=== PATIENT | female | born 1945 | race Caucasian/White ===

== ENCOUNTER 2017-09-21 14:55 | Inpatient (IN) | payer MEDICARE ==
[2017-09-16] MEDS: cefTRIAXone 1g/NS 100ml IVPB 100 ML IV SCH (08:00)
[2017-09-17] MEDS: cefTRIAXone 1g/NS 100ml IVPB 100 ML IV SCH (08:00)
[2017-09-18] MEDS: cefTRIAXone 1g/NS 100ml IVPB 100 ML IV SCH (08:00)
[2017-09-19] MEDS: cefTRIAXone 1g/NS 100ml IVPB 100 ML IV SCH (08:00)
[2017-09-20] MEDS: cefTRIAXone 1g/NS 100ml IVPB 100 ML IV SCH (08:00)
[~2017-09-21] VITALS: Ht 162.6 cm; Wt 110.8 kg
[2017-09-21] MEDS: cefTRIAXone 1g/NS 100ml IVPB 100 ML IV SCH (08:00)
[~2017-09-21 14:55] MED LIST: 0.9 % SODIUM CHLORIDE 10 ML VIAL ONE; DOBUTamine/D5W 500mg/250ml premix IV ONE; DOPamine/D5W 400mg/250ml bag IV ONE; amiodarone 50MG/ML inj IV ONE; atropine 0.1mg/ml 10ml syringe ONE; calcium chloride 100 MG/1 ML inj IV ONE; epiNEPHrine 0.1mg/ml 10ml syringe ONE; etomidate 2mg/ml inj. ONE; sodium bicarbonate (8.4%) 1 mEq/ml syringe ONE
[2017-09-21] MEDS ORDERED: albuterol 2.5 MG/3 ML nebule NEB ONE ×2 (15:00→17:10)
[2017-09-21] MEDS ORDERED: etomidate 2mg/ml inj. ONE (15:00)
[2017-09-21] MEDS ORDERED: rocuronium 10mg/ml inj IV ONE (15:00)
[2017-09-21] MEDS ORDERED: amiodarone 50MG/ML inj IV ONE (15:00)
[2017-09-21] MEDS ORDERED: sodium bicarbonate (8.4%) 1 mEq/ml syringe ONE (15:00)
[2017-09-21] MEDS ORDERED: sod chloride 0.9% 10ml flush syringe IV ONE ×2 (15:00)
[2017-09-21] MEDS ORDERED: calcium chloride 100 MG/1 ML inj IV ONE (15:00)
[2017-09-21] MEDS ORDERED: NORepinephrine 1 mg/ml inj IV ONE (15:00)
[2017-09-21] MEDS ORDERED: epiNEPHrine 0.1mg/ml 10ml syringe ONE ×2 (15:00)
[2017-09-21 16:03] LABS: BASOPHILS # (AUTO) 0.1 X10'3 (0-0.2); BASOPHILS % (AUTO) 1.2 % (0-1); EOSINOPHILS # (AUTO) 0.1 X10'3 (0-0.9); EOSINOPHILS % (AUTO) 1.2 % (0-6); HEMATOCRIT 42.3 % (35.0-45.0); HEMOGLOBIN 13.6 g/dl (12.0-16.0); LYMPHOCYTES % (AUTO) 12.1 % (21-51); MEAN CORPUSCULAR HEMOGLOBIN 29.8 PG (27.0-31.0); MEAN CORPUSCULAR HGB CONC 32.3 % (33.0-36.5); MEAN CORPUSCULAR VOLUME 92.2 FL (78-98); MEAN PLATELET VOLUME 6.5 FL (7.4-10.4); MONOCYTES # (AUTO) 0.6 X10'3 (0-0.9); MONOCYTES % (AUTO) 6.4 % (2-12); NEUTROPHILS # (AUTO) 6.8 X10'3 (1.8-7.7); NEUTROPHILS % (AUTO) 79.1 % (42-75); PLATELET COUNT 332 X10'3 (140-440); RED BLOOD COUNT 4.59 X10'6 (4.20-5.60); RED CELL DISTRIBUTION WIDTH 13.7 % (11.5-14.5); WHITE BLOOD COUNT 8.6 X10'3 (4.5-11.0)
[2017-09-21 16:20] LABS: CLARITY,URINE CLEAR (Clear); COLOR,URINE YELLOW (Yellow); GLUCOSE, URINE 500 mg/dl (Neg); KETONES,URINE NEGATIVE (Neg); LEUKOCYTE ESTERASE ,URINE NEGATIVE (Neg); NITRITES, URINE POSITIVE (Neg); OCCULT BLOOD,URINE MODERATE (Neg); PH,URINE 5.5 (4.8-8.0); PROTEIN,URINE 100 mg/dl (Neg)
[2017-09-21 16:23] LABS: ALANINE AMINOTRANSFERASE 52 U/L (12-78); ALBUMIN 3.2 G/DL (3.4-5.0); ALBUMIN/GLOBULIN RATIO 0.8 (1.1-1.5); ALKALINE PHOSPHATASE 86 IU/L (46-116); ANION GAP 3 (8-16); ASPARTATE AMINO TRANSFERASE 25 U/L (10-37); BILIRUBIN,TOTAL 0.5 MG/DL (0.1-1.0); BLOOD UREA NITROGEN 17 MG/DL (7-18); BUN/CREATININE RATIO 20.2 (6.6-38.0); CALCIUM 8.9 MG/DL (8.5-10.1); CHLORIDE 95 MMOL/L (99-107); CREATININE 0.84 MG/DL (0.40-0.90); GLUCOSE 248 MG/DL (70-104); INR 1.1 INR; MAGNESIUM 1.9 MG/DL (1.5-2.4); PARTIAL THROMBOPLASTIN TIME 28 SECONDS (22-32); PHOSPHORUS 3.9 MG/DL (2.3-4.5); POTASSIUM 4.5 MMOL/L (3.5-5.1); PROTHROMBIN TIME 11.1 SECONDS (9.0-12.0); SODIUM 138 MMOL/L (135-145); TOTAL PROTEIN 7.4 G/DL (6.4-8.2); eGFR 67 ML/MIN
[2017-09-21 16:24] LABS: TOTAL CARBON DIOXIDE 40.1 MMOL/L (24-32)
[2017-09-21 16:30] LABS: UA COLLECTION TYPE NON-SPECIFIED
[2017-09-21 16:35] LABS: WBC,URINE 0-4 /HPF (0-4)
[2017-09-21 16:36] LABS: BACTERIA,URINE 4+ /HPF (Neg); RBC,URINE 0-2 /HPF (0-2); SQUAMOUS EPITHELIAL CELL,UR FEW /LPF (FEW)
[2017-09-21] MEDS ORDERED: CefTRIAXone 2gm/NS 100ml IVPB 100 ML IV ONE (16:55)
[2017-09-21] MEDS ORDERED: azithromycin/NS 500mg/250ml 250 ML IV ONE (16:55)
[2017-09-21] MEDS ORDERED: normal saline 1000ML IV soln IVB ONE (16:55)
[2017-09-21] MEDS ORDERED: methylPREDNISolone sod succ 125mg/2ml vial IV ONE (17:10)
[2017-09-21] MEDS ORDERED: magnesium hydroxide 30ml (MOM) UD suspension PO PRN (17:30)
[2017-09-21] MEDS ORDERED: ondansetron/PF 4mg/2ml inj IV PRN (17:30)
[2017-09-21] MEDS: enoxaparin 40mg/0.4ml syringe SUBCUT SCH (17:30)
[2017-09-21] MEDS ORDERED: mag hydrox/Alum hydrox/simeth 30ml oral suspension PO PRN (17:30)
[2017-09-21 17:51] LABS: ABG HCO3 38.7 mmol/L (22.0-26.0); ABG PCO2 (T) 63.4 mmHg (32.0-45.0); ABG PH (T) 7.401 (7.350-7.450); ABG PO2 (T) 43.4 mmHg (83-108); FCOHb 1.3 % (0.5-1.5); FO2Hb 81.9 % (94-100); PATIENT TEMPERATURE 36.4; TOTAL HEMOGLOBIN 13.9 G/dl (12.0-16.0)
[2017-09-21] MEDS ORDERED: SOTA80TA69 PO (19:52)
[2017-09-21] MEDS ORDERED: ALPR0.5T10 PO (19:52)
[2017-09-21] MEDS ORDERED: PRAV40TA3 PO (19:52)
[2017-09-21] MEDS ORDERED: NITR0.4T SL (19:52)
[2017-09-21] MEDS ORDERED: DABI150C PO (19:52)
[2017-09-21] MEDS ORDERED: BUSP10TA10 PO (19:52)
[2017-09-21] MEDS ORDERED: ALBU8.5H8 IH (19:52)
[2017-09-21] MEDS: dextrose 5%-1/2 normal saline 1,000 ML IV SCH (20:44)
[2017-09-22] VITALS (10 sets, daily range): BP systolic 115–137; BP diastolic 63–91
[2017-09-22] MEDS ORDERED: diltiazem 5mg/ml 5ml inj. IV ONE ×2 (00:15→03:05)
[2017-09-22] MEDS ORDERED: diltiazem-D5W 125mg/125ml 125 ML IV SCH (04:20)
[2017-09-22] MEDS: dextrose 5%-1/2 normal saline 1,000 ML IV SCH ×3 (05:16→22:06)
[2017-09-22] MEDS: enoxaparin 40mg/0.4ml syringe SUBCUT SCH (08:34)
[2017-09-22] MEDS: cefTRIAXone 1g/NS 100ml IVPB 100 ML IV SCH (08:34)
[2017-09-22] MEDS: azithromycin/NS 500mg/250ml 250 ML IV SCH (08:34)
[2017-09-22] MEDS ORDERED: LORazepam 0.5 MG tablet PO PRN (15:20)
[2017-09-22] MEDS ORDERED: sotalol 80mg tablet PO ONE (15:20)
[2017-09-22] MEDS ORDERED: nitroGLYCERIN 0.4mg SUBLingual tab SL PRN (15:30)
[2017-09-22] MEDS: lactobacillus rhamnosus 10,000 MMU CELLS/CAPSULE PO SCH (17:00)
[2017-09-22] MEDS: dabigatran 150mg capsule PO SCH (22:01)
[2017-09-22] MEDS: busPIRone 5mg tablet PO SCH (22:02)
[2017-09-22] MEDS: sotalol 80mg tablet PO SCH (22:03)
[2017-09-23] VITALS (18 sets, daily range): BP systolic 95–142; BP diastolic 49–92
[2017-09-23] MEDS: dabigatran 150mg capsule PO SCH ×3 (07:26→20:59)
[2017-09-23] MEDS: pravastatin 40mg tablet PO SCH ×2 (07:26→08:00)
[2017-09-23] MEDS: sotalol 80mg tablet PO SCH (07:26)
[2017-09-23] MEDS: cefTRIAXone 1g/NS 100ml IVPB 100 ML IV SCH (07:26)
[2017-09-23] MEDS: lactobacillus rhamnosus 10,000 MMU CELLS/CAPSULE PO SCH ×3 (07:26→17:33)
[2017-09-23] MEDS: azithromycin/NS 500mg/250ml 250 ML IV SCH (07:26)
[2017-09-23] MEDS: busPIRone 5mg tablet PO SCH ×3 (07:27→20:59)
[2017-09-23 08:34] LABS: ABG BASE EXCESS 6.8 mmol/L (-2.0-3.0); ABG HCO3 40.4 mmol/L (22.0-26.0); ABG OXYGEN SATURATION 85.5 % (95-98); ABG PCO2 (T) 124.4 mmHg (32.0-45.0); ABG PH (T) 7.129 (7.350-7.450); ABG PO2 (T) 54.7 mmHg (83-108); FCOHb 0.7 % (0.5-1.5); FLOW 1 L/min; FMetHb 0.3 % (0.3-1.12); FO2Hb 84.6 % (94-100); TOTAL HEMOGLOBIN 13.3 G/dl (12.0-16.0)
[2017-09-23 09:56] LABS: BASOPHILS # (AUTO) 0.1 X10'3 (0-0.2); BASOPHILS % (AUTO) 1.2 % (0-1); EOSINOPHILS # (AUTO) 0.1 X10'3 (0-0.9); EOSINOPHILS % (AUTO) 0.7 % (0-6); HEMATOCRIT 38.7 % (35.0-45.0); HEMOGLOBIN 12.4 g/dl (12.0-16.0); LYMPHOCYTES # (AUTO) 2.2 X10'3 (1.1-4.8); LYMPHOCYTES % (AUTO) 21.8 % (21-51); MEAN CORPUSCULAR HEMOGLOBIN 30.2 PG (27.0-31.0); MEAN CORPUSCULAR HGB CONC 32.1 % (33.0-36.5); MEAN CORPUSCULAR VOLUME 94.2 FL (78-98); MEAN PLATELET VOLUME 6.5 FL (7.4-10.4); MONOCYTES # (AUTO) 1.3 X10'3 (0-0.9); MONOCYTES % (AUTO) 13.2 % (2-12); NEUTROPHILS # (AUTO) 6.4 X10'3 (1.8-7.7); NEUTROPHILS % (AUTO) 63.1 % (42-75); PLATELET COUNT 327 X10'3 (140-440); RED BLOOD COUNT 4.11 X10'6 (4.20-5.60); RED CELL DISTRIBUTION WIDTH 14.7 % (11.5-14.5); WHITE BLOOD COUNT 10.1 X10'3 (4.5-11.0)
[2017-09-23 10:05] LABS: ABG BASE EXCESS 13.4 mmol/L (-2.0-3.0); ABG HCO3 48.4 mmol/L (22.0-26.0); ABG OXYGEN SATURATION 45.3 % (95-98); ABG PH (T) 7.127 (7.350-7.450); ABG PO2 (T) 28.9 mmHg (83-108); FCOHb 0.6 % (0.5-1.5); FMetHb 0.2 % (0.3-1.12); FO2Hb 44.9 % (94-100); MINUTE VOLUME 9 L/min; RESPIRATORY RATE 22 b/min; RESPIRATORY RATE (OBSERVED) 24 b/min; TOTAL HEMOGLOBIN 13.1 G/dl (12.0-16.0)
[2017-09-23 10:11] LABS: ALANINE AMINOTRANSFERASE 37 U/L (12-78); ALBUMIN 2.8 G/DL (3.4-5.0); ALBUMIN/GLOBULIN RATIO 0.8 (1.1-1.5); ALKALINE PHOSPHATASE 70 IU/L (46-116); ANION GAP -3 (8-16); ASPARTATE AMINO TRANSFERASE 17 U/L (10-37); BILIRUBIN,TOTAL 0.2 MG/DL (0.1-1.0); BLOOD UREA NITROGEN 13 MG/DL (7-18); BUN/CREATININE RATIO 16.5 (6.6-38.0); CALCIUM 8.4 MG/DL (8.5-10.1); CHLORIDE 101 MMOL/L (99-107); CREATININE 0.79 MG/DL (0.40-0.90); GLUCOSE 116 MG/DL (70-104); SODIUM 141 MMOL/L (135-145); TOTAL PROTEIN 6.5 G/DL (6.4-8.2); eGFR 72 ML/MIN
[2017-09-23 10:14] LABS: TOTAL CARBON DIOXIDE 42.7 MMOL/L (24-32)
[2017-09-23] MEDS: methylPREDNISolone sod succ 125mg/2ml vial IV SCH ×3 (11:01→20:59)
[2017-09-23] MEDS: normal saline 1000ml 1,000 ML IV SCH ×2 (14:11→16:38)
[2017-09-23 15:50] LABS: ABG BASE EXCESS 7.3 mmol/L (-2.0-3.0); ABG OXYGEN SATURATION 94.7 % (95-98); ABG PCO2 (T) 80.3 mmHg (32.0-45.0); ABG PH (T) 7.281 (7.350-7.450); ABG PO2 (T) 76.3 mmHg (83-108); ALLEN'S TEST Positive; FCOHb 0.7 % (0.5-1.5); FMetHb 0.2 % (0.3-1.12); FO2Hb 93.8 % (94-100); MINUTE VOLUME 14 L/min; RESPIRATORY RATE 24 b/min; TOTAL HEMOGLOBIN 13.3 G/dl (12.0-16.0)
[2017-09-24] VITALS (24 sets, daily range): BP systolic 102–154; BP diastolic 64–93
[2017-09-24] MEDS: methylPREDNISolone sod succ 125mg/2ml vial IV SCH ×4 (02:23→19:51)
[2017-09-24] MEDS: normal saline 1000ml 1,000 ML IV SCH (05:41)
[2017-09-24 06:20] LABS: BASOPHILS % (AUTO) 0.2 % (0-1); EOSINOPHILS % (AUTO) 0.4 % (0-6); HEMATOCRIT 37.2 % (35.0-45.0); HEMOGLOBIN 12.2 g/dl (12.0-16.0); LYMPHOCYTES # (AUTO) 0.6 X10'3 (1.1-4.8); MEAN CORPUSCULAR HEMOGLOBIN 29.7 PG (27.0-31.0); MEAN CORPUSCULAR HGB CONC 32.9 % (33.0-36.5); MEAN CORPUSCULAR VOLUME 90.4 FL (78-98); MEAN PLATELET VOLUME 6.8 FL (7.4-10.4); MONOCYTES # (AUTO) 0.2 X10'3 (0-0.9); MONOCYTES % (AUTO) 2.7 % (2-12); NEUTROPHILS # (AUTO) 6.2 X10'3 (1.8-7.7); NEUTROPHILS % (AUTO) 87.7 % (42-75); PLATELET COUNT 275 X10'3 (140-440); RED BLOOD COUNT 4.11 X10'6 (4.20-5.60); WHITE BLOOD COUNT 7.1 X10'3 (4.5-11.0)
[2017-09-24 07:12] LABS: ALANINE AMINOTRANSFERASE 43 U/L (12-78); ALBUMIN 2.8 G/DL (3.4-5.0); ALBUMIN/GLOBULIN RATIO 0.8 (1.1-1.5); ALKALINE PHOSPHATASE 65 IU/L (46-116); ANION GAP 5 (8-16); ASPARTATE AMINO TRANSFERASE 17 U/L (10-37); BILIRUBIN,TOTAL 0.3 MG/DL (0.1-1.0); BLOOD UREA NITROGEN 13 MG/DL (7-18); BUN/CREATININE RATIO 18.6 (6.6-38.0); CALCIUM 8.6 MG/DL (8.5-10.1); CHLORIDE 100 MMOL/L (99-107); GLUCOSE 195 MG/DL (70-104); POTASSIUM 4.4 MMOL/L (3.5-5.1); SODIUM 140 MMOL/L (135-145); TOTAL CARBON DIOXIDE 35.5 MMOL/L (24-32); TOTAL PROTEIN 6.5 G/DL (6.4-8.2); eGFR 82 ML/MIN
[2017-09-24] MEDS: dabigatran 150mg capsule PO SCH ×2 (07:54→19:51)
[2017-09-24] MEDS: lactobacillus rhamnosus 10,000 MMU CELLS/CAPSULE PO SCH ×2 (07:54→19:51)
[2017-09-24] MEDS: pravastatin 40mg tablet PO SCH (07:54)
[2017-09-24] MEDS: azithromycin 250mg tablet PO SCH (07:55)
[2017-09-24] MEDS: cefTRIAXone 1g/NS 100ml IVPB 100 ML IV SCH (07:55)
[2017-09-24] MEDS: busPIRone 5mg tablet PO SCH ×2 (07:55→19:51)
[2017-09-24] MEDS: albuterol 2.5 MG/3 ML nebule NEB PRN ×3 (07:57→23:53)
[2017-09-24] MEDS ORDERED: ipratropium 0.5 MG/2.5ML nebule IH SCH (12:00)
[2017-09-24] MEDS: ipratropium/albuterol 3ml nebule NEB SCH ×2 (14:18→19:23)
[2017-09-24] MEDS ORDERED: LORazepam 0.5 MG tablet PO ONE (20:50)
[2017-09-24] MEDS ORDERED: LORazepam 2 mg/ml vial IV ONE ×2 (21:00→23:35)
[2017-09-24] MEDS ORDERED: diphenhydrAMINE 50 mg/ml inj IV ONE (21:00)
[2017-09-24] MEDS ORDERED: diphenhydrAMINE 50 mg/ml inj ONE (21:09)
[2017-09-24] MEDS ORDERED: LORazepam 2 mg/ml vial ONE ×2 (21:09→23:34)
[2017-09-24] MEDS: nicotine 14mg patch - 24hr TD SCH (23:35)
[2017-09-25] VITALS (24 sets, daily range): BP systolic 93–149; BP diastolic 63–119
[2017-09-25] MEDS ORDERED: ziprasidone IM 20mg inj **IM only IM ONE
[2017-09-25 01:16] LABS: ABG BASE EXCESS 10.6 mmol/L (-2.0-3.0); ABG HCO3 38.4 mmol/L (22.0-26.0); ABG PCO2 (T) 68.3 mmHg (32.0-45.0); ABG PH (T) 7.369 (7.350-7.450); ABG PO2 (T) 111.8 mmHg (83-108); FCOHb 0.2 % (0.5-1.5); FMetHb 0.2 % (0.3-1.12); FO2Hb 97.6 % (94-100); MINUTE VOLUME 24 L/min; PATIENT TEMPERATURE 37.4; RESPIRATORY RATE 18 b/min; RESPIRATORY RATE (OBSERVED) 30 b/min; TIDAL VOLUME 922 mL; TOTAL HEMOGLOBIN 12.7 G/dl (12.0-16.0)
[2017-09-25] MEDS: methylPREDNISolone sod succ 125mg/2ml vial IV SCH ×4 (02:15→21:01)
[2017-09-25] MEDS ORDERED: amiodarone/D5 360MG/200ML BAG 200 ML IV SCH (03:26)
[2017-09-25] MEDS ORDERED: amiodarone 150mg/dext, iso-os 100 ML IV ONE (03:30)
[2017-09-25] MEDS: amiodarone/D5 450MG/250ML BAG 250 ML IV SCH (04:22)
[2017-09-25] MEDS: ipratropium/albuterol 3ml nebule NEB SCH ×4 (07:22→19:11)
[2017-09-25] MEDS: nicotine 14mg patch - 24hr TD SCH (08:00)
[2017-09-25] MEDS: cefTRIAXone 1g/NS 100ml IVPB 100 ML IV SCH (08:30)
[2017-09-25] MEDS: azithromycin 250mg tablet PO SCH (13:34)
[2017-09-25] MEDS: busPIRone 5mg tablet PO SCH ×2 (13:35→21:01)
[2017-09-25] MEDS: pravastatin 40mg tablet PO SCH (13:35)
[2017-09-25] MEDS: lactobacillus rhamnosus 10,000 MMU CELLS/CAPSULE PO SCH ×2 (13:35→21:01)
[2017-09-25] MEDS: dabigatran 150mg capsule PO SCH ×2 (13:35→21:02)
[2017-09-25] MEDS ORDERED: enoxaparin 60mg/0.6ml syringe SUBCUT SCH (20:00)
[2017-09-25] MEDS: acetaminophen 325mg tablet PO PRN (21:03)
[2017-09-25] MEDS: ALPRAZolam 0.25mg tablet PO SCH (21:22)
[2017-09-26] VITALS (24 sets, daily range): BP systolic 100–152; BP diastolic 59–101
[2017-09-26] MEDS: ALPRAZolam 0.25mg tablet PO SCH
[2017-09-26] MEDS ORDERED: ALPRAZolam 0.25mg tablet PO ONE (02:35)
[2017-09-26] MEDS: methylPREDNISolone sod succ 125mg/2ml vial IV SCH ×4 (02:41→20:39)
[2017-09-26] MEDS: amiodarone/D5 450MG/250ML BAG 250 ML IV SCH ×2 (04:41→17:38)
[2017-09-26 06:17] LABS: BASOPHILS % (AUTO) 0.1 % (0-1); EOSINOPHILS # (AUTO) 0.1 X10'3 (0-0.9); EOSINOPHILS % (AUTO) 0.6 % (0-6); HEMATOCRIT 37.9 % (35.0-45.0); HEMOGLOBIN 12.2 g/dl (12.0-16.0); LYMPHOCYTES # (AUTO) 0.4 X10'3 (1.1-4.8); LYMPHOCYTES % (AUTO) 4.4 % (21-51); MEAN CORPUSCULAR HEMOGLOBIN 29.6 PG (27.0-31.0); MEAN CORPUSCULAR HGB CONC 32.2 % (33.0-36.5); MEAN CORPUSCULAR VOLUME 91.8 FL (78-98); MEAN PLATELET VOLUME 6.7 FL (7.4-10.4); MONOCYTES # (AUTO) 0.5 X10'3 (0-0.9); MONOCYTES % (AUTO) 4.5 % (2-12); NEUTROPHILS # (AUTO) 9.3 X10'3 (1.8-7.7); NEUTROPHILS % (AUTO) 90.4 % (42-75); PLATELET COUNT 276 X10'3 (140-440); RED BLOOD COUNT 4.13 X10'6 (4.20-5.60); RED CELL DISTRIBUTION WIDTH 14.2 % (11.5-14.5); WHITE BLOOD COUNT 10.3 X10'3 (4.5-11.0)
[2017-09-26 06:57] LABS: ALANINE AMINOTRANSFERASE 38 U/L (12-78); ALBUMIN 2.7 G/DL (3.4-5.0); ALBUMIN/GLOBULIN RATIO 0.7 (1.1-1.5); ALKALINE PHOSPHATASE 64 IU/L (46-116); ANION GAP 2 (8-16); ASPARTATE AMINO TRANSFERASE 12 U/L (10-37); BILIRUBIN,TOTAL 0.3 MG/DL (0.1-1.0); BLOOD UREA NITROGEN 21 MG/DL (7-18); BUN/CREATININE RATIO 28.8 (6.6-38.0); CALCIUM 8.4 MG/DL (8.5-10.1); CHLORIDE 102 MMOL/L (99-107); CREATININE 0.73 MG/DL (0.40-0.90); GLUCOSE 193 MG/DL (70-104); POTASSIUM 4.7 MMOL/L (3.5-5.1); SODIUM 141 MMOL/L (135-145); TOTAL CARBON DIOXIDE 36.6 MMOL/L (24-32); TOTAL PROTEIN 6.5 G/DL (6.4-8.2); eGFR 79 ML/MIN
[2017-09-26] MEDS: ipratropium/albuterol 3ml nebule NEB SCH ×4 (07:04→19:21)
[2017-09-26] MEDS: cefTRIAXone 1g/NS 100ml IVPB 100 ML IV SCH (08:16)
[2017-09-26] MEDS: busPIRone 5mg tablet PO SCH ×2 (08:19→20:40)
[2017-09-26] MEDS: dabigatran 150mg capsule PO SCH ×2 (08:19→20:39)
[2017-09-26] MEDS: pravastatin 40mg tablet PO SCH (08:19)
[2017-09-26] MEDS: lactobacillus rhamnosus 10,000 MMU CELLS/CAPSULE PO SCH ×2 (08:19→20:39)
[2017-09-26] MEDS: azithromycin 250mg tablet PO SCH (08:19)
[2017-09-26] MEDS: nicotine 14mg patch - 24hr TD SCH (08:20)
[2017-09-26] MEDS: acetaminophen 325mg tablet PO PRN ×2 (11:56→17:37)
[2017-09-26] MEDS: digoxin 250mcg (0.25mg) tablet PO SCH (13:05)
[2017-09-26] MEDS ORDERED: ALPRAZolam 0.25mg tablet PO PRN (20:10)
[2017-09-27] VITALS (16 sets, daily range): BP systolic 27–156; BP diastolic 74–97
[2017-09-27] MEDS: methylPREDNISolone sod succ 125mg/2ml vial IV SCH ×2 (02:23→07:20)
[2017-09-27 06:09] LABS: BASOPHILS % (AUTO) 0 % (0-1); EOSINOPHILS # (AUTO) 0.2 X10'3 (0-0.9); EOSINOPHILS % (AUTO) 1.8 % (0-6); HEMATOCRIT 37.4 % (35.0-45.0); LYMPHOCYTES # (AUTO) 0.3 X10'3 (1.1-4.8); MEAN CORPUSCULAR HEMOGLOBIN 29.4 PG (27.0-31.0); MEAN CORPUSCULAR HGB CONC 32.1 % (33.0-36.5); MEAN CORPUSCULAR VOLUME 91.8 FL (78-98); MEAN PLATELET VOLUME 6.8 FL (7.4-10.4); MONOCYTES # (AUTO) 0.5 X10'3 (0-0.9); MONOCYTES % (AUTO) 4.8 % (2-12); NEUTROPHILS # (AUTO) 9.4 X10'3 (1.8-7.7); NEUTROPHILS % (AUTO) 90.4 % (42-75); PLATELET COUNT 252 X10'3 (140-440); RED BLOOD COUNT 4.07 X10'6 (4.20-5.60); RED CELL DISTRIBUTION WIDTH 14.6 % (11.5-14.5); WHITE BLOOD COUNT 10.4 X10'3 (4.5-11.0)
[2017-09-27 06:27] LABS: ALANINE AMINOTRANSFERASE 37 U/L (12-78); ALBUMIN 2.7 G/DL (3.4-5.0); ALBUMIN/GLOBULIN RATIO 0.8 (1.1-1.5); ALKALINE PHOSPHATASE 65 IU/L (46-116); ANION GAP 2 (8-16); ASPARTATE AMINO TRANSFERASE 8 U/L (10-37); BILIRUBIN,TOTAL 0.3 MG/DL (0.1-1.0); BLOOD UREA NITROGEN 20 MG/DL (7-18); BUN/CREATININE RATIO 30.8 (6.6-38.0); CALCIUM 8.4 MG/DL (8.5-10.1); CHLORIDE 100 MMOL/L (99-107); CREATININE 0.65 MG/DL (0.40-0.90); GLUCOSE 198 MG/DL (70-104); MAGNESIUM 2.2 MG/DL (1.5-2.4); POTASSIUM 4.9 MMOL/L (3.5-5.1); SODIUM 140 MMOL/L (135-145); TOTAL CARBON DIOXIDE 38.2 MMOL/L (24-32); TOTAL PROTEIN 6.2 G/DL (6.4-8.2); eGFR 90 ML/MIN
[2017-09-27] MEDS: dabigatran 150mg capsule PO SCH ×2 (07:20→21:42)
[2017-09-27] MEDS: cefTRIAXone 1g/NS 100ml IVPB 100 ML IV SCH (07:20)
[2017-09-27] MEDS: busPIRone 5mg tablet PO SCH ×2 (07:20→19:34)
[2017-09-27] MEDS: digoxin 250mcg (0.25mg) tablet PO SCH (07:20)
[2017-09-27] MEDS: lactobacillus rhamnosus 10,000 MMU CELLS/CAPSULE PO SCH ×2 (07:20→19:33)
[2017-09-27] MEDS: nicotine 14mg patch - 24hr TD SCH (07:21)
[2017-09-27] MEDS: pravastatin 40mg tablet PO SCH (07:21)
[2017-09-27] MEDS: azithromycin 250mg tablet PO SCH (07:21)
[2017-09-27] MEDS: ipratropium/albuterol 3ml nebule NEB SCH ×4 (08:25→16:15)
[2017-09-27] MEDS: sotalol 80mg tablet PO SCH ×2 (09:49→19:33)
[2017-09-27] MEDS: cefTAZidime inj. 1 GM in normal saline 100ml IV soln 100 ML IV SCH ×3 (11:50→23:47)
[2017-09-27] MEDS: methylPREDNISolone sod succ/PF 40mg inj. IV SCH ×2 (19:02→23:47)
[2017-09-27] MEDS: acetaminophen 325mg tablet PO PRN (19:45)
[2017-09-27] MEDS: albuterol 2.5 MG/3 ML nebule NEB PRN (20:36)
[2017-09-28] VITALS (23 sets, daily range): BP systolic 81–189; BP diastolic 54–108
[2017-09-28] MEDS: ipratropium/albuterol 3ml nebule NEB SCH ×3 (07:00→20:21)
[2017-09-28] MEDS: dabigatran 150mg capsule PO SCH (08:00)
[2017-09-28] MEDS: digoxin 250mcg (0.25mg) tablet PO SCH (08:00)
[2017-09-28] MEDS: pravastatin 40mg tablet PO SCH (08:00)
[2017-09-28] MEDS: methylPREDNISolone sod succ/PF 40mg inj. IV SCH ×2 (08:03→16:00)
[2017-09-28] MEDS: sotalol 80mg tablet PO SCH ×2 (08:03→20:00)
[2017-09-28] MEDS: nicotine 14mg patch - 24hr TD SCH (08:03)
[2017-09-28] MEDS: busPIRone 5mg tablet PO SCH ×2 (08:06→22:44)
[2017-09-28] MEDS: lactobacillus rhamnosus 10,000 MMU CELLS/CAPSULE PO SCH ×2 (08:06→22:44)
[2017-09-28] MEDS: azithromycin 250mg tablet PO SCH (08:07)
[2017-09-28] MEDS ORDERED: hydrALAZINE 20mg/ml inj. IV STA (08:54)
[2017-09-28] MEDS ORDERED: cloNIDine 0.2 MG/24 HR patch (7 day patch) TD STA (08:54)
[2017-09-28 09:01] LABS: ABG BASE EXCESS 3.8 mmol/L (-2.0-3.0); ABG HCO3 38.5 mmol/L (22.0-26.0); ABG PCO2 (T) 122.4 mmHg (32.0-45.0); ALLEN'S TEST Positive; FCOHb 0.6 % (0.5-1.5); FMetHb 0.3 % (0.3-1.12); FO2Hb 98.1 % (94-100); TOTAL HEMOGLOBIN 15.2 G/dl (12.0-16.0)
[2017-09-28 12:01] LABS: ABG BASE EXCESS 5.4 mmol/L (-2.0-3.0); ABG HCO3 35.3 mmol/L (22.0-26.0); ABG OXYGEN SATURATION 94.9 % (95-98); ABG PCO2 (T) 81.5 mmHg (32.0-45.0); ABG PH (T) 7.256 (7.350-7.450); ABG PO2 (T) 81.6 mmHg (83-108); ALLEN'S TEST Positive; FCOHb 0.6 % (0.5-1.5); FMetHb 0.2 % (0.3-1.12); FO2Hb 94.1 % (94-100); PATIENT TEMPERATURE 37.1; RESPIRATORY RATE 20 b/min; TOTAL HEMOGLOBIN 13.7 G/dl (12.0-16.0)
[2017-09-28] MEDS: cefTAZidime inj. 1 GM in normal saline 100ml IV soln 100 ML IV SCH ×2 (12:32→17:20)
[2017-09-28] MEDS ORDERED: succinylcholine 20mg/ml inj IV ONE ×2 (16:37→16:46)
[2017-09-28 17:40] LABS: ABG BASE EXCESS 3.8 mmol/L (-2.0-3.0); ABG HCO3 30.4 mmol/L (22.0-26.0); ABG OXYGEN SATURATION 97.1 % (95-98); ABG PCO2 (T) 52.8 mmHg (32.0-45.0); ABG PH (T) 7.376 (7.350-7.450); ABG PO2 (T) 87.7 mmHg (83-108); ALLEN'S TEST Positive; FCOHb 0.5 % (0.5-1.5); FMetHb 0.2 % (0.3-1.12); FO2Hb 96.4 % (94-100); MINUTE VOLUME 7 L/min; PATIENT TEMPERATURE 36.5; PEEP 5 cm H2O; RESPIRATORY RATE 18 b/min; TIDAL VOLUME 350 mL; TOTAL HEMOGLOBIN 14.4 G/dl (12.0-16.0)
[2017-09-28] MEDS ORDERED: midazolam 100mg in NS 100ml 100 ML IV PRN (18:00)
[2017-09-28] MEDS ORDERED: FENTANYL-0.9 % NACL/PF 100 ML IV PRN (18:00)
[2017-09-28] MEDS: midazolam 100mg in NS 100ml 100 ML IV PRN (18:03)
[2017-09-28] MEDS: FENTANYL-0.9 % NACL/PF 100 ML IV PRN (18:03)
[2017-09-28 18:22] LABS: BASOPHILS % (AUTO) 0.1 % (0-1); EOSINOPHILS % (AUTO) 0.1 % (0-6); HEMATOCRIT 42.3 % (35.0-45.0); HEMOGLOBIN 13.3 g/dl (12.0-16.0); LYMPHOCYTES # (AUTO) 0.4 X10'3 (1.1-4.8); MEAN CORPUSCULAR HEMOGLOBIN 28.9 PG (27.0-31.0); MEAN CORPUSCULAR HGB CONC 31.5 % (33.0-36.5); MEAN CORPUSCULAR VOLUME 91.6 FL (78-98); MEAN PLATELET VOLUME 6.8 FL (7.4-10.4); MONOCYTES % (AUTO) 4.8 % (2-12); NEUTROPHILS # (AUTO) 18.7 X10'3 (1.8-7.7); PLATELET COUNT 227 X10'3 (140-440); RED BLOOD COUNT 4.61 X10'6 (4.20-5.60); RED CELL DISTRIBUTION WIDTH 14.1 % (11.5-14.5); WHITE BLOOD COUNT 20.1 X10'3 (4.5-11.0)
[2017-09-28 18:47] LABS: ALANINE AMINOTRANSFERASE 42 U/L (12-78); ALBUMIN 2.4 G/DL (3.4-5.0); ALBUMIN/GLOBULIN RATIO 0.7 (1.1-1.5); ALKALINE PHOSPHATASE 64 IU/L (46-116); ANION GAP 2 (8-16); ASPARTATE AMINO TRANSFERASE 20 U/L (10-37); BILIRUBIN,TOTAL 0.4 MG/DL (0.1-1.0); BLOOD UREA NITROGEN 27 MG/DL (7-18); CALCIUM 8.1 MG/DL (8.5-10.1); CHLORIDE 100 MMOL/L (99-107); CREATININE 0.87 MG/DL (0.40-0.90); GLUCOSE 196 MG/DL (70-104); MAGNESIUM 2.1 MG/DL (1.5-2.4); PHOSPHORUS 4.3 MG/DL (2.3-4.5); SODIUM 140 MMOL/L (135-145); TOTAL CARBON DIOXIDE 38.1 MMOL/L (24-32); TOTAL PROTEIN 5.7 G/DL (6.4-8.2); eGFR 64 ML/MIN
[2017-09-28] MEDS ORDERED: heparin 10,000 units/1 ML INJ IV PRN (19:35)
[2017-09-28] MEDS ORDERED: heparin 10,000 units/1 ML INJ IV ONE (19:35)
[2017-09-28 22:32] LABS: CLARITY,URINE SLIGHTLY CLOUDY (Clear); COLOR,URINE YELLOW (Yellow); GLUCOSE, URINE NEGATIVE (Neg); KETONES,URINE NEGATIVE (Neg); LEUKOCYTE ESTERASE ,URINE NEGATIVE (Neg); NITRITES, URINE NEGATIVE (Neg); OCCULT BLOOD,URINE LARGE (Neg); PROTEIN,URINE 30 mg/dl (Neg); UROBILINOGEN,URINE 0.2 E.U/dL (0.2-1.0)
[2017-09-28 22:50] LABS: UA COLLECTION TYPE FOLEY CATH
[2017-09-28 22:51] LABS: BACTERIA,URINE FEW /HPF (Neg); MUCUS STRANDS FEW /LPF (Neg); RBC,URINE TNTC /HPF (0-2); SQUAMOUS EPITHELIAL CELL,UR MODERATE /LPF (FEW); WBC,URINE 0-4 /HPF (0-4)
[2017-09-29] VITALS (25 sets, daily range): BP systolic 82–133; BP diastolic 57–94
[2017-09-29] MEDS: cefTAZidime inj. 1 GM in normal saline 100ml IV soln 100 ML IV SCH ×2
[2017-09-29 01:28] LABS: BASOPHILS % (AUTO) 0.2 % (0-1); EOSINOPHILS % (AUTO) 0 % (0-6); HEMATOCRIT 36.9 % (35.0-45.0); HEMOGLOBIN 12.3 g/dl (12.0-16.0); LYMPHOCYTES # (AUTO) 0.6 X10'3 (1.1-4.8); LYMPHOCYTES % (AUTO) 5.4 % (21-51); MEAN CORPUSCULAR HEMOGLOBIN 30.4 PG (27.0-31.0); MEAN CORPUSCULAR HGB CONC 33.2 % (33.0-36.5); MEAN CORPUSCULAR VOLUME 91.4 FL (78-98); MEAN PLATELET VOLUME 7.4 FL (7.4-10.4); MONOCYTES # (AUTO) 0.7 X10'3 (0-0.9); NEUTROPHILS # (AUTO) 9.9 X10'3 (1.8-7.7); NEUTROPHILS % (AUTO) 88.4 % (42-75); PLATELET COUNT 173 X10'3 (140-440); RED BLOOD COUNT 4.04 X10'6 (4.20-5.60); RED CELL DISTRIBUTION WIDTH 13.8 % (11.5-14.5); WHITE BLOOD COUNT 11.2 X10'3 (4.5-11.0)
[2017-09-29 01:42] LABS: ALANINE AMINOTRANSFERASE 35 U/L (12-78); ALBUMIN 2.1 G/DL (3.4-5.0); ALBUMIN/GLOBULIN RATIO 0.7 (1.1-1.5); ALKALINE PHOSPHATASE 48 IU/L (46-116); ANION GAP 5 (8-16); ASPARTATE AMINO TRANSFERASE 15 U/L (10-37); BILIRUBIN,TOTAL 0.4 MG/DL (0.1-1.0); BLOOD UREA NITROGEN 28 MG/DL (7-18); BUN/CREATININE RATIO 32.9 (6.6-38.0); CALCIUM 8.1 MG/DL (8.5-10.1); CHLORIDE 102 MMOL/L (99-107); CREATININE 0.85 MG/DL (0.40-0.90); GLUCOSE 211 MG/DL (70-104); POTASSIUM 4.8 MMOL/L (3.5-5.1); SODIUM 142 MMOL/L (135-145); TROPONIN I 0.06 NG/ML (0.0-0.05); eGFR 66 ML/MIN
[2017-09-29] MEDS ORDERED: ceftazidime 1000mg in D5W 50ml 50 ML IV ONE (01:52)
[2017-09-29] MEDS: methylPREDNISolone sod succ/PF 40mg inj. IV SCH ×3 (01:54→16:09)
[2017-09-29] MEDS: NORepinephrine 8mg/ 250ml NS 250 ML IV SCH (02:40)
[2017-09-29 03:13] LABS: BASOPHILS % (AUTO) 0.2 % (0-1); EOSINOPHILS # (AUTO) 0.1 X10'3 (0-0.9); EOSINOPHILS % (AUTO) 0.9 % (0-6); HEMATOCRIT 44.6 % (35.0-45.0); HEMOGLOBIN 14.2 g/dl (12.0-16.0); LYMPHOCYTES # (AUTO) 2.5 X10'3 (1.1-4.8); LYMPHOCYTES % (AUTO) 30.8 % (21-51); MEAN CORPUSCULAR HGB CONC 31.9 % (33.0-36.5); MEAN CORPUSCULAR VOLUME 91.1 FL (78-98); MEAN PLATELET VOLUME 7.4 FL (7.4-10.4); MONOCYTES # (AUTO) 0.1 X10'3 (0-0.9); MONOCYTES % (AUTO) 1.6 % (2-12); NEUTROPHILS # (AUTO) 5.4 X10'3 (1.8-7.7); NEUTROPHILS % (AUTO) 66.5 % (42-75); PLATELET COUNT 117 X10'3 (140-440); RED CELL DISTRIBUTION WIDTH 14.5 % (11.5-14.5); WHITE BLOOD COUNT 8.1 X10'3 (4.5-11.0)
[2017-09-29 03:47] LABS: ALANINE AMINOTRANSFERASE 42 U/L (12-78); ALBUMIN 2.5 G/DL (3.4-5.0); ALBUMIN/GLOBULIN RATIO 0.7 (1.1-1.5); ALKALINE PHOSPHATASE 70 IU/L (46-116); ANION GAP 6 (8-16); ASPARTATE AMINO TRANSFERASE 25 U/L (10-37); BILIRUBIN,TOTAL 0.5 MG/DL (0.1-1.0); BLOOD UREA NITROGEN 29 MG/DL (7-18); BUN/CREATININE RATIO 29.6 (6.6-38.0); CALCIUM 8.9 MG/DL (8.5-10.1); CHLORIDE 101 MMOL/L (99-107); CREATININE 0.98 MG/DL (0.40-0.90); GLUCOSE 238 MG/DL (70-104); MAGNESIUM 2.1 MG/DL (1.5-2.4); POTASSIUM 5.4 MMOL/L (3.5-5.1); SODIUM 139 MMOL/L (135-145); TOTAL CARBON DIOXIDE 31.7 MMOL/L (24-32); TOTAL PROTEIN 6.1 G/DL (6.4-8.2); eGFR 56 ML/MIN
[2017-09-29 03:52] LABS: TROPONIN I 1.12 NG/ML (0.0-0.05)
[2017-09-29 04:21] LABS: ABG BASE EXCESS 3.4 mmol/L (-2.0-3.0); ABG HCO3 30.4 mmol/L (22.0-26.0); ABG OXYGEN SATURATION 99.7 % (95-98); ABG PCO2 (T) 57.2 mmHg (32.0-45.0); ABG PH (T) 7.345 (7.350-7.450); FCOHb 0.6 % (0.5-1.5); FMetHb 0.1 % (0.3-1.12); MINUTE VOLUME 7 L/min; PATIENT TEMPERATURE 37.3; PEEP 5 cm H2O; RESPIRATORY RATE 18 b/min; TIDAL VOLUME 350 mL; TOTAL HEMOGLOBIN 14.1 G/dl (12.0-16.0)
[2017-09-29] MEDS: midazolam 100mg in NS 100ml 100 ML IV PRN (06:46)
[2017-09-29] MEDS: FENTANYL-0.9 % NACL/PF 100 ML IV PRN (06:47)
[2017-09-29] MEDS: sotalol 80mg tablet PO SCH ×2 (07:12→20:00)
[2017-09-29] MEDS: azithromycin 250mg tablet PO SCH (07:24)
[2017-09-29] MEDS: lactobacillus rhamnosus 10,000 MMU CELLS/CAPSULE PO SCH ×2 (07:24→22:20)
[2017-09-29] MEDS: digoxin 250mcg (0.25mg) tablet PO SCH (07:25)
[2017-09-29] MEDS: nicotine 14mg patch - 24hr TD SCH (07:25)
[2017-09-29] MEDS: busPIRone 5mg tablet PO SCH ×2 (07:25→22:20)
[2017-09-29 07:26] LABS: BASOPHILS % (AUTO) 0.1 % (0-1); EOSINOPHILS # (AUTO) 0.2 X10'3 (0-0.9); EOSINOPHILS % (AUTO) 0.9 % (0-6); HEMATOCRIT 40.6 % (35.0-45.0); HEMOGLOBIN 13.1 g/dl (12.0-16.0); LYMPHOCYTES # (AUTO) 0.6 X10'3 (1.1-4.8); LYMPHOCYTES % (AUTO) 2.9 % (21-51); MEAN CORPUSCULAR HEMOGLOBIN 29.3 PG (27.0-31.0); MEAN CORPUSCULAR HGB CONC 32.1 % (33.0-36.5); MEAN CORPUSCULAR VOLUME 91.2 FL (78-98); MEAN PLATELET VOLUME 7.4 FL (7.4-10.4); MONOCYTES # (AUTO) 1.5 X10'3 (0-0.9); NEUTROPHILS # (AUTO) 18.7 X10'3 (1.8-7.7); NEUTROPHILS % (AUTO) 89.1 % (42-75); PLATELET COUNT 217 X10'3 (140-440); RED BLOOD COUNT 4.46 X10'6 (4.20-5.60); RED CELL DISTRIBUTION WIDTH 14.4 % (11.5-14.5)
[2017-09-29] MEDS: ipratropium/albuterol 3ml nebule NEB SCH ×4 (07:31→20:06)
[2017-09-29 07:41] LABS: ALANINE AMINOTRANSFERASE 45 U/L (12-78); ALBUMIN 2.2 G/DL (3.4-5.0); ALBUMIN/GLOBULIN RATIO 0.8 (1.1-1.5); ALKALINE PHOSPHATASE 49 IU/L (46-116); ANION GAP 6 (8-16); ASPARTATE AMINO TRANSFERASE 21 U/L (10-37); BILIRUBIN,TOTAL 0.6 MG/DL (0.1-1.0); BLOOD UREA NITROGEN 35 MG/DL (7-18); BUN/CREATININE RATIO 43.8 (6.6-38.0); CALCIUM 8.6 MG/DL (8.5-10.1); CHLORIDE 102 MMOL/L (99-107); GLUCOSE 232 MG/DL (70-104); POTASSIUM 5.1 MMOL/L (3.5-5.1); SODIUM 141 MMOL/L (135-145); TOTAL CARBON DIOXIDE 33.3 MMOL/L (24-32); TOTAL PROTEIN 5.1 G/DL (6.4-8.2); eGFR 71 ML/MIN
[2017-09-29] MEDS: pravastatin 40mg tablet PO SCH (08:16)
[2017-09-29] MEDS: NORMAL SALINE IV SCH ×2 (08:33→16:09)
[2017-09-29] MEDS: CEFTAZIDIME IV SCH ×2 (08:33→16:09)
[2017-09-29 09:29] LABS: D-DIMER 2.89 MG/L FEU (0-0.50)
[2017-09-29] MEDS: aspirin 81mg tab.chew PO SCH (09:55)
[2017-09-29] MEDS ORDERED: dextrose ORAL solution 15 GM/59 ML bottle PO PRN ×2 (10:30)
[2017-09-29] MEDS ORDERED: MESSAGE TO PHARMACY PO ONE (10:30)
[2017-09-29] MEDS ORDERED: dextrose 50%-water 50ml dispensing syringe IV PRN ×2 (10:30)
[2017-09-29] MEDS ORDERED: glucagon, human recombinant 1mg kit SUBCUT PRN (10:30)
[2017-09-29 11:43] LABS: CHOL/HDL RATIO 2.3 (0.00-4.99); CHOLESTEROL 137 MG/DL (0-200); HDL CHOLESTEROL 60 MG/DL (35-60); LDL CHOLESTEROL 57 MG/DL (50-100); TRIGLYCERIDES 121 MG/DL (20-135)
[2017-09-29] MEDS ORDERED: LIDOcaine 1% 30ml vial 30 ML ONE (18:48)
[2017-09-29] MEDS ORDERED: iohexol 350MG/ML 100ml bottle IV ONE (18:48)
[2017-09-29] MEDS ORDERED: insulin glargine (Lantus) pen - multi-dose SQ SCH (21:00)
[2017-09-29] MEDS: insulin Lispro (HumaLOG) vial - multi-dose SQ SCH (22:15)
[2017-09-29] MEDS: insulin glargine (Lantus) pen - multi-dose SQ SCH (22:29)
[2017-09-30] VITALS (24 sets, daily range): BP systolic 89–132; BP diastolic 34–86
[2017-09-30] MEDS: methylPREDNISolone sod succ/PF 40mg inj. IV SCH ×3 (00:35→15:05)
[2017-09-30] MEDS: NORMAL SALINE IV SCH ×3 (00:37→15:05)
[2017-09-30] MEDS: NORepinephrine 8mg/ 250ml NS 250 ML IV SCH (00:37)
[2017-09-30] MEDS: FENTANYL-0.9 % NACL/PF 100 ML IV PRN ×3 (00:37→15:06)
[2017-09-30] MEDS: mineral oil/petrolatum ophthal oint EACHEYE SCH ×5 (00:37→21:52)
[2017-09-30] MEDS: CEFTAZIDIME IV SCH ×3 (00:37→15:05)
[2017-09-30] MEDS: midazolam 100mg in NS 100ml 100 ML IV PRN ×2 (01:09→15:05)
[2017-09-30 03:25] LABS: BASOPHILS % (AUTO) 0.1 % (0-1); EOSINOPHILS # (AUTO) 0.1 X10'3 (0-0.9); HEMOGLOBIN 12.2 g/dl (12.0-16.0); LYMPHOCYTES # (AUTO) 0.6 X10'3 (1.1-4.8); LYMPHOCYTES % (AUTO) 4.8 % (21-51); MEAN CORPUSCULAR HEMOGLOBIN 28.7 PG (27.0-31.0); MEAN CORPUSCULAR HGB CONC 32.1 % (33.0-36.5); MEAN CORPUSCULAR VOLUME 89.3 FL (78-98); MEAN PLATELET VOLUME 6.9 FL (7.4-10.4); MONOCYTES # (AUTO) 0.6 X10'3 (0-0.9); MONOCYTES % (AUTO) 5.3 % (2-12); NEUTROPHILS # (AUTO) 10.3 X10'3 (1.8-7.7); NEUTROPHILS % (AUTO) 88.8 % (42-75); PLATELET COUNT 142 X10'3 (140-440); RED BLOOD COUNT 4.26 X10'6 (4.20-5.60); RED CELL DISTRIBUTION WIDTH 14.3 % (11.5-14.5); WHITE BLOOD COUNT 11.6 X10'3 (4.5-11.0)
[2017-09-30 03:36] LABS: INR 1.1 INR; PARTIAL THROMBOPLASTIN TIME 25 SECONDS (22-32); PROTHROMBIN TIME 11.4 SECONDS (9.0-12.0)
[2017-09-30 03:45] LABS: ALANINE AMINOTRANSFERASE 43 U/L (12-78); ALBUMIN 2.1 G/DL (3.4-5.0); ALBUMIN/GLOBULIN RATIO 0.7 (1.1-1.5); ALKALINE PHOSPHATASE 43 IU/L (46-116); ANION GAP 2 (8-16); ASPARTATE AMINO TRANSFERASE 16 U/L (10-37); BILIRUBIN,TOTAL 0.5 MG/DL (0.1-1.0); BLOOD UREA NITROGEN 34 MG/DL (7-18); BUN/CREATININE RATIO 41.5 (6.6-38.0); CALCIUM 8.1 MG/DL (8.5-10.1); CHLORIDE 104 MMOL/L (99-107); CREATININE 0.82 MG/DL (0.40-0.90); GLUCOSE 198 MG/DL (70-104); PHOSPHORUS 4.1 MG/DL (2.3-4.5); POTASSIUM 4.7 MMOL/L (3.5-5.1); SODIUM 142 MMOL/L (135-145); TOTAL CARBON DIOXIDE 35.7 MMOL/L (24-32); eGFR 69 ML/MIN
[2017-09-30] MEDS: insulin Lispro (HumaLOG) vial - multi-dose SQ SCH (03:55)
[2017-09-30 04:31] LABS: ABG BASE EXCESS 5.4 mmol/L (-2.0-3.0); ABG HCO3 30.2 mmol/L (22.0-26.0); ABG OXYGEN SATURATION 92.7 % (95-98); ABG PCO2 (T) 44.1 mmHg (32.0-45.0); ABG PH (T) 7.452 (7.350-7.450); ABG PO2 (T) 67.5 mmHg (83-108); FCOHb 0.5 % (0.5-1.5); FMetHb 0.1 % (0.3-1.12); FO2Hb 92.1 % (94-100); MINUTE VOLUME 7 L/min; PATIENT TEMPERATURE 36.6; PEEP 5 cm H2O; RESPIRATORY RATE 18 b/min; TIDAL VOLUME 300 mL; TOTAL HEMOGLOBIN 13.3 G/dl (12.0-16.0)
[2017-09-30] MEDS: ipratropium/albuterol 3ml nebule NEB SCH ×3 (07:16→20:24)
[2017-09-30] MEDS: nicotine 14mg patch - 24hr TD SCH (07:28)
[2017-09-30] MEDS: busPIRone 5mg tablet PO SCH ×2 (07:28→21:53)
[2017-09-30] MEDS: lactobacillus rhamnosus 10,000 MMU CELLS/CAPSULE PO SCH ×2 (07:28→21:52)
[2017-09-30] MEDS: digoxin 250mcg (0.25mg) tablet PO SCH (07:29)
[2017-09-30] MEDS: pravastatin 40mg tablet PO SCH (07:29)
[2017-09-30] MEDS: aspirin 81mg tab.chew PO SCH (07:30)
[2017-09-30] MEDS: azithromycin 250mg tablet PO SCH (07:30)
[2017-09-30] MEDS: sotalol 80mg tablet PO SCH ×2 (07:30→20:00)
[2017-09-30] MEDS ORDERED: heparin, porcine 5000 units/ml vial SQ SCH (08:00)
[2017-09-30] MEDS: insulin regular, human vial - multi-dose SQ SCH ×3 (08:31→21:58)
[2017-09-30] MEDS: furosemide 20 MG/2 ML vial IV SCH ×2 (11:37→21:52)
[2017-09-30] MEDS: pantoprazole 40 MG vial IV SCH (11:37)
[2017-09-30] MEDS ORDERED: amiodarone 150mg/dext, iso-os 100 ML IV ONE (15:25)
[2017-09-30] MEDS: amiodarone/D5 450MG/250ML BAG 250 ML IV SCH (15:54)
[2017-09-30] MEDS: apixaban 5mg tablet PO SCH (21:52)
[2017-09-30] MEDS: spironolactone 50 MG tablet PO SCH (21:53)
[2017-09-30] MEDS: insulin glargine (Lantus) pen - multi-dose SQ SCH (21:59)
[2017-10-01] VITALS (23 sets, daily range): BP systolic 83–132; BP diastolic 55–83
[2017-10-01] MEDS: CEFTAZIDIME IV SCH ×3 (00:18→15:03)
[2017-10-01] MEDS: NORMAL SALINE IV SCH ×3 (00:18→15:03)
[2017-10-01] MEDS: methylPREDNISolone sod succ/PF 40mg inj. IV SCH ×3 (00:18→20:38)
[2017-10-01] MEDS: amiodarone/D5 450MG/250ML BAG 250 ML IV SCH ×2 (01:58→18:07)
[2017-10-01] MEDS: ipratropium/albuterol 3ml nebule NEB SCH ×4 (02:49→20:18)
[2017-10-01] MEDS: mineral oil/petrolatum ophthal oint EACHEYE SCH ×4 (03:21→20:40)
[2017-10-01] MEDS: furosemide 20 MG/2 ML vial IV SCH ×2 (03:21→09:10)
[2017-10-01] MEDS: insulin regular, human vial - multi-dose SQ SCH ×4 (03:27→22:30)
[2017-10-01 03:49] LABS: ALANINE AMINOTRANSFERASE 39 U/L (12-78); ALBUMIN 2.1 G/DL (3.4-5.0); ALBUMIN/GLOBULIN RATIO 0.7 (1.1-1.5); ALKALINE PHOSPHATASE 48 IU/L (46-116); ANION GAP 7 (8-16); ASPARTATE AMINO TRANSFERASE 11 U/L (10-37); BILIRUBIN,TOTAL 0.4 MG/DL (0.1-1.0); BLOOD UREA NITROGEN 34 MG/DL (7-18); BUN/CREATININE RATIO 47.9 (6.6-38.0); CALCIUM 8.1 MG/DL (8.5-10.1); CHLORIDE 102 MMOL/L (99-107); CREATININE 0.71 MG/DL (0.40-0.90); GLUCOSE 241 MG/DL (70-104); MAGNESIUM 1.9 MG/DL (1.5-2.4); PHOSPHORUS 3.8 MG/DL (2.3-4.5); POTASSIUM 4.5 MMOL/L (3.5-5.1); SODIUM 142 MMOL/L (135-145); TOTAL CARBON DIOXIDE 33.3 MMOL/L (24-32); eGFR 81 ML/MIN
[2017-10-01 03:55] LABS: BASOPHILS % (AUTO) 0 % (0-1); EOSINOPHILS % (AUTO) 0 % (0-6); HEMATOCRIT 37.6 % (35.0-45.0); HEMOGLOBIN 12.3 g/dl (12.0-16.0); LYMPHOCYTES # (AUTO) 0.3 X10'3 (1.1-4.8); LYMPHOCYTES % (AUTO) 2.4 % (21-51); MEAN CORPUSCULAR HEMOGLOBIN 29.2 PG (27.0-31.0); MEAN CORPUSCULAR HGB CONC 32.7 % (33.0-36.5); MEAN CORPUSCULAR VOLUME 89.2 FL (78-98); MEAN PLATELET VOLUME 7.3 FL (7.4-10.4); MONOCYTES # (AUTO) 0.7 X10'3 (0-0.9); MONOCYTES % (AUTO) 4.9 % (2-12); NEUTROPHILS # (AUTO) 12.9 X10'3 (1.8-7.7); NEUTROPHILS % (AUTO) 92.7 % (42-75); PLATELET COUNT 105 X10'3 (140-440); RED BLOOD COUNT 4.22 X10'6 (4.20-5.60); RED CELL DISTRIBUTION WIDTH 14.3 % (11.5-14.5); WHITE BLOOD COUNT 13.9 X10'3 (4.5-11.0)
[2017-10-01] MEDS: FENTANYL-0.9 % NACL/PF 100 ML IV PRN ×3 (06:06→20:49)
[2017-10-01] MEDS: midazolam 100mg in NS 100ml 100 ML IV PRN ×2 (06:53→22:41)
[2017-10-01] MEDS: apixaban 5mg tablet PO SCH ×2 (08:00→20:40)
[2017-10-01] MEDS: sotalol 80mg tablet PO SCH ×2 (08:00→20:38)
[2017-10-01 08:51] LABS: ABG BASE EXCESS 5.1 mmol/L (-2.0-3.0); ABG HCO3 32.2 mmol/L (22.0-26.0); ABG OXYGEN SATURATION 93.2 % (95-98); ABG PCO2 (T) 59.8 mmHg (32.0-45.0); ABG PO2 (T) 75.3 mmHg (83-108); FCOHb 0.3 % (0.5-1.5); FMetHb 0.1 % (0.3-1.12); FO2Hb 92.8 % (94-100); MINUTE VOLUME 7 L/min; PATIENT TEMPERATURE 37.2; PEEP 5 cm H2O; RESPIRATORY RATE 18 b/min; TIDAL VOLUME 350 mL; TOTAL HEMOGLOBIN 12.7 G/dl (12.0-16.0)
[2017-10-01] MEDS: nicotine 14mg patch - 24hr TD SCH (09:07)
[2017-10-01] MEDS: aspirin 81mg tab.chew PO SCH (09:08)
[2017-10-01] MEDS: digoxin 250mcg (0.25mg) tablet PO SCH (09:09)
[2017-10-01] MEDS: spironolactone 50 MG tablet PO SCH ×2 (09:09→20:42)
[2017-10-01] MEDS: busPIRone 5mg tablet PO SCH ×2 (09:09→20:40)
[2017-10-01] MEDS: lactobacillus rhamnosus 10,000 MMU CELLS/CAPSULE PO SCH ×2 (09:10→20:38)
[2017-10-01] MEDS: pravastatin 40mg tablet PO SCH (09:10)
[2017-10-01] MEDS ORDERED: furosemide 40mg/4ml inj IV ONE (09:30)
[2017-10-01] MEDS: pantoprazole 40 MG vial IV SCH (09:59)
[2017-10-01] MEDS: docusate sodium 100mg/10ml UD cup PO SCH (20:38)
[2017-10-01] MEDS: furosemide 40mg/4ml inj IV SCH (20:40)
[2017-10-01] MEDS: insulin glargine (Lantus) pen - multi-dose SQ SCH (22:29)
[2017-10-02] VITALS (24 sets, daily range): BP systolic 81–149; BP diastolic 54–90
[2017-10-02] MEDS: NORMAL SALINE IV SCH ×4 (00:02→23:39)
[2017-10-02] MEDS: CEFTAZIDIME IV SCH ×4 (00:02→23:39)
[2017-10-02] MEDS: mineral oil/petrolatum ophthal oint EACHEYE SCH ×4 (02:01→19:57)
[2017-10-02] MEDS: insulin regular, human vial - multi-dose SQ SCH ×4 (02:05→20:06)
[2017-10-02 03:43] LABS: INR 1.1 INR; PARTIAL THROMBOPLASTIN TIME 24 SECONDS (22-32); PROTHROMBIN TIME 10.9 SECONDS (9.0-12.0)
[2017-10-02 03:46] LABS: ALANINE AMINOTRANSFERASE 34 U/L (12-78); ALBUMIN 1.9 G/DL (3.4-5.0); ALBUMIN/GLOBULIN RATIO 0.7 (1.1-1.5); ALKALINE PHOSPHATASE 49 IU/L (46-116); ANION GAP 2 (8-16); ASPARTATE AMINO TRANSFERASE 10 U/L (10-37); BILIRUBIN,TOTAL 0.4 MG/DL (0.1-1.0); BLOOD UREA NITROGEN 37 MG/DL (7-18); BUN/CREATININE RATIO 63.8 (6.6-38.0); CHLORIDE 102 MMOL/L (99-107); CREATININE 0.58 MG/DL (0.40-0.90); GLUCOSE 156 MG/DL (70-104); MAGNESIUM 1.6 MG/DL (1.5-2.4); PHOSPHORUS 3.4 MG/DL (2.3-4.5); SODIUM 143 MMOL/L (135-145); TOTAL CARBON DIOXIDE 39.2 MMOL/L (24-32); TOTAL PROTEIN 4.8 G/DL (6.4-8.2); eGFR > 90 ML/MIN
[2017-10-02 03:57] LABS: BASOPHILS % (AUTO) 0 % (0-1); EOSINOPHILS # (AUTO) 0.1 X10'3 (0-0.9); EOSINOPHILS % (AUTO) 0.6 % (0-6); HEMATOCRIT 37.6 % (35.0-45.0); HEMOGLOBIN 12.2 g/dl (12.0-16.0); LYMPHOCYTES # (AUTO) 0.3 X10'3 (1.1-4.8); LYMPHOCYTES % (AUTO) 2.3 % (21-51); MEAN CORPUSCULAR HGB CONC 32.5 % (33.0-36.5); MEAN CORPUSCULAR VOLUME 89.2 FL (78-98); MEAN PLATELET VOLUME 7.8 FL (7.4-10.4); MONOCYTES # (AUTO) 0.7 X10'3 (0-0.9); MONOCYTES % (AUTO) 5.3 % (2-12); NEUTROPHILS # (AUTO) 12.9 X10'3 (1.8-7.7); NEUTROPHILS % (AUTO) 91.8 % (42-75); PLATELET COUNT 89 X10'3 (140-440); RED BLOOD COUNT 4.21 X10'6 (4.20-5.60); RED CELL DISTRIBUTION WIDTH 14.6 % (11.5-14.5)
[2017-10-02] MEDS: ipratropium/albuterol 3ml nebule NEB SCH ×4 (04:17→20:55)
[2017-10-02 04:56] LABS: ABG BASE EXCESS 9.9 mmol/L (-2.0-3.0); ABG HCO3 37.8 mmol/L (22.0-26.0); ABG OXYGEN SATURATION 94.2 % (95-98); ABG PCO2 (T) 65.8 mmHg (32.0-45.0); ABG PH (T) 7.375 (7.350-7.450); ABG PO2 (T) 76.5 mmHg (83-108); ALLEN'S TEST Positive; FCOHb 0.2 % (0.5-1.5); FMetHb 0.1 % (0.3-1.12); FO2Hb 93.9 % (94-100); MINUTE VOLUME 8 L/min; PATIENT TEMPERATURE 36.6; PEEP 5 cm H2O; RESPIRATORY RATE 18 b/min; RESPIRATORY RATE (OBSERVED) 18 b/min; TIDAL VOLUME 350 mL
[2017-10-02] MEDS: amiodarone/D5 450MG/250ML BAG 250 ML IV SCH ×2 (08:29→23:39)
[2017-10-02] MEDS: aspirin 81mg tab.chew PO SCH (08:30)
[2017-10-02] MEDS: busPIRone 5mg tablet PO SCH ×2 (08:30→19:59)
[2017-10-02] MEDS: apixaban 5mg tablet PO SCH ×2 (08:30→19:59)
[2017-10-02] MEDS: pravastatin 40mg tablet PO SCH (08:30)
[2017-10-02] MEDS: nicotine 14mg patch - 24hr TD SCH (08:30)
[2017-10-02] MEDS: lactobacillus rhamnosus 10,000 MMU CELLS/CAPSULE PO SCH ×2 (08:30→19:59)
[2017-10-02] MEDS: sotalol 80mg tablet PO SCH ×2 (08:30→19:59)
[2017-10-02] MEDS: docusate sodium 100mg/10ml UD cup PO SCH ×2 (08:30→19:59)
[2017-10-02] MEDS: furosemide 40mg/4ml inj IV SCH ×3 (08:31→23:39)
[2017-10-02] MEDS: digoxin 250mcg (0.25mg) tablet PO SCH (08:31)
[2017-10-02] MEDS: pantoprazole 40 MG vial IV SCH (08:31)
[2017-10-02] MEDS: spironolactone 50 MG tablet PO SCH ×2 (09:18→19:58)
[2017-10-02] MEDS: methylPREDNISolone sod succ/PF 40mg inj. IV SCH ×2 (09:18→19:58)
[2017-10-02] MEDS: FENTANYL-0.9 % NACL/PF 100 ML IV PRN (11:25)
[2017-10-02] MEDS: midazolam 100mg in NS 100ml 100 ML IV PRN (11:26)
[2017-10-02] MEDS: dexmedetomidin/NS 400mcg/100ml 100 ML IV SCH (16:45)
[2017-10-02 17:41] LABS: ABG BASE EXCESS 7.4 mmol/L (-2.0-3.0); ABG HCO3 33.4 mmol/L (22.0-26.0); ABG OXYGEN SATURATION 90.5 % (95-98); ABG PCO2 (T) 52.8 mmHg (32.0-45.0); ABG PH (T) 7.419 (7.350-7.450); ABG PO2 (T) 60.7 mmHg (83-108); ALLEN'S TEST Positive; FCOHb 0.7 % (0.5-1.5); FMetHb 0.1 % (0.3-1.12); FO2Hb 89.8 % (94-100); MINUTE VOLUME 8 L/min; PEEP 5 cm H2O; RESPIRATORY RATE 18 b/min; RESPIRATORY RATE (OBSERVED) 18 b/min; TOTAL HEMOGLOBIN 13.2 G/dl (12.0-16.0)
[2017-10-02] MEDS: insulin glargine (Lantus) pen - multi-dose SQ SCH (20:07)
[2017-10-03] VITALS (23 sets, daily range): BP systolic 79–116; BP diastolic 52–81
[2017-10-03] MEDS: ipratropium/albuterol 3ml nebule NEB SCH ×4 (01:54→20:43)
[2017-10-03] MEDS: mineral oil/petrolatum ophthal oint EACHEYE SCH ×4 (03:00→19:36)
[2017-10-03] MEDS: insulin regular, human vial - multi-dose SQ SCH ×4 (03:05→19:45)
[2017-10-03] MEDS ORDERED: dexmedetomidine 200mcg/2ml inj. IV ONE (03:52)
[2017-10-03] MEDS ORDERED: normal saline 100ml IV soln 100 ML ONE (03:54)
[2017-10-03 04:24] LABS: ABG BASE EXCESS 10.9 mmol/L (-2.0-3.0); ABG HCO3 36.4 mmol/L (22.0-26.0); ABG OXYGEN SATURATION 89.7 % (95-98); ABG PCO2 (T) 51.1 mmHg (32.0-45.0); ALLEN'S TEST Positive; FCOHb 0.6 % (0.5-1.5); FO2Hb 89.2 % (94-100); PEEP 5 cm H2O; RESPIRATORY RATE 18 b/min; TIDAL VOLUME 350 mL; TOTAL HEMOGLOBIN 13.2 G/dl (12.0-16.0)
[2017-10-03 04:36] LABS: BASOPHILS % (AUTO) 0.2 % (0-1); EOSINOPHILS # (AUTO) 0.1 X10'3 (0-0.9); EOSINOPHILS % (AUTO) 0.9 % (0-6); HEMATOCRIT 37.7 % (35.0-45.0); HEMOGLOBIN 12.1 g/dl (12.0-16.0); LYMPHOCYTES # (AUTO) 0.5 X10'3 (1.1-4.8); LYMPHOCYTES % (AUTO) 4.1 % (21-51); MEAN CORPUSCULAR HGB CONC 32.1 % (33.0-36.5); MEAN CORPUSCULAR VOLUME 90.2 FL (78-98); MONOCYTES # (AUTO) 0.7 X10'3 (0-0.9); MONOCYTES % (AUTO) 6.8 % (2-12); NEUTROPHILS # (AUTO) 9.6 X10'3 (1.8-7.7); PLATELET COUNT 103 X10'3 (140-440); RED BLOOD COUNT 4.18 X10'6 (4.20-5.60); RED CELL DISTRIBUTION WIDTH 14.2 % (11.5-14.5); WHITE BLOOD COUNT 10.9 X10'3 (4.5-11.0)
[2017-10-03 04:48] LABS: PARTIAL THROMBOPLASTIN TIME 22 SECONDS (22-32); PROTHROMBIN TIME 10.7 SECONDS (9.0-12.0)
[2017-10-03 04:52] LABS: ALANINE AMINOTRANSFERASE 35 U/L (12-78); ALBUMIN 2.1 G/DL (3.4-5.0); ALBUMIN/GLOBULIN RATIO 0.7 (1.1-1.5); ALKALINE PHOSPHATASE 47 IU/L (46-116); ANION GAP 2 (8-16); ASPARTATE AMINO TRANSFERASE 13 U/L (10-37); BILIRUBIN,TOTAL 0.4 MG/DL (0.1-1.0); BLOOD UREA NITROGEN 40 MG/DL (7-18); BUN/CREATININE RATIO 78.4 (6.6-38.0); CALCIUM 8.2 MG/DL (8.5-10.1); CHLORIDE 100 MMOL/L (99-107); CREATININE 0.51 MG/DL (0.40-0.90); GLUCOSE 159 MG/DL (70-104); MAGNESIUM 1.8 MG/DL (1.5-2.4); PHOSPHORUS 2.9 MG/DL (2.3-4.5); SODIUM 143 MMOL/L (135-145); TOTAL PROTEIN 5.2 G/DL (6.4-8.2); eGFR > 90 ML/MIN
[2017-10-03 04:56] LABS: TOTAL CARBON DIOXIDE 41.5 MMOL/L (24-32)
[2017-10-03] MEDS: FENTANYL-0.9 % NACL/PF 100 ML IV PRN (06:51)
[2017-10-03] MEDS: methylPREDNISolone sod succ/PF 40mg inj. IV SCH ×2 (08:17→19:35)
[2017-10-03] MEDS: CEFTAZIDIME IV SCH ×3 (08:17→23:41)
[2017-10-03] MEDS: pantoprazole 40 MG vial IV SCH (08:17)
[2017-10-03] MEDS: NORMAL SALINE IV SCH ×3 (08:17→23:41)
[2017-10-03] MEDS: docusate sodium 100mg/10ml UD cup PO SCH ×2 (08:17→19:36)
[2017-10-03] MEDS: spironolactone 50 MG tablet PO SCH ×2 (08:18→19:36)
[2017-10-03] MEDS: sotalol 80mg tablet PO SCH ×2 (08:18→19:24)
[2017-10-03] MEDS: nicotine 14mg patch - 24hr TD SCH (08:18)
[2017-10-03] MEDS: furosemide 40mg/4ml inj IV SCH ×3 (08:18→23:40)
[2017-10-03] MEDS: pravastatin 40mg tablet PO SCH (08:18)
[2017-10-03] MEDS: lactobacillus rhamnosus 10,000 MMU CELLS/CAPSULE PO SCH ×2 (08:18→19:36)
[2017-10-03] MEDS: busPIRone 5mg tablet PO SCH ×2 (08:19→19:35)
[2017-10-03] MEDS: digoxin 250mcg (0.25mg) tablet PO SCH (08:19)
[2017-10-03] MEDS: apixaban 5mg tablet PO SCH ×3 (08:19→17:38)
[2017-10-03] MEDS: aspirin 81mg tab.chew PO SCH (08:20)
[2017-10-03] MEDS: dexmedetomidin/NS 400mcg/100ml 100 ML IV SCH ×3 (12:50→23:40)
[2017-10-03] MEDS: amiodarone/D5 450MG/250ML BAG 250 ML IV SCH (17:05)
[2017-10-03] MEDS: acetaminophen 325mg tablet PO PRN (19:35)
[2017-10-03] MEDS: insulin glargine (Lantus) pen - multi-dose SQ SCH (19:46)
[2017-10-04] VITALS (24 sets, daily range): BP systolic 71–112; BP diastolic 50–76
[2017-10-04] MEDS: FENTANYL-0.9 % NACL/PF 100 ML IV PRN ×2 (01:03→22:22)
[2017-10-04] MEDS: mineral oil/petrolatum ophthal oint EACHEYE SCH ×4 (01:04→20:07)
[2017-10-04] MEDS: insulin regular, human vial - multi-dose SQ SCH ×4 (02:09→20:31)
[2017-10-04 02:42] LABS: BASOPHILS % (AUTO) 0.1 % (0-1); EOSINOPHILS # (AUTO) 0.1 X10'3 (0-0.9); EOSINOPHILS % (AUTO) 0.5 % (0-6); LYMPHOCYTES # (AUTO) 0.5 X10'3 (1.1-4.8); LYMPHOCYTES % (AUTO) 3.4 % (21-51); MEAN CORPUSCULAR HEMOGLOBIN 28.9 PG (27.0-31.0); MEAN CORPUSCULAR HGB CONC 32.5 % (33.0-36.5); MEAN CORPUSCULAR VOLUME 88.9 FL (78-98); MEAN PLATELET VOLUME 7.8 FL (7.4-10.4); MONOCYTES # (AUTO) 0.9 X10'3 (0-0.9); MONOCYTES % (AUTO) 6.2 % (2-12); NEUTROPHILS # (AUTO) 13.5 X10'3 (1.8-7.7); NEUTROPHILS % (AUTO) 89.8 % (42-75); PLATELET COUNT 102 X10'3 (140-440); RED BLOOD COUNT 4.51 X10'6 (4.20-5.60); RED CELL DISTRIBUTION WIDTH 14.6 % (11.5-14.5)
[2017-10-04 02:49] LABS: PARTIAL THROMBOPLASTIN TIME 22 SECONDS (22-32); PROTHROMBIN TIME 10.8 SECONDS (9.0-12.0)
[2017-10-04 03:00] LABS: ALANINE AMINOTRANSFERASE 35 U/L (12-78); ALBUMIN 2.1 G/DL (3.4-5.0); ALBUMIN/GLOBULIN RATIO 0.6 (1.1-1.5); ALKALINE PHOSPHATASE 58 IU/L (46-116); ANION GAP 0 (8-16); ASPARTATE AMINO TRANSFERASE 15 U/L (10-37); BILIRUBIN,TOTAL 0.5 MG/DL (0.1-1.0); BLOOD UREA NITROGEN 46 MG/DL (7-18); BUN/CREATININE RATIO 69.7 (6.6-38.0); CALCIUM 8.4 MG/DL (8.5-10.1); CHLORIDE 97 MMOL/L (99-107); CREATININE 0.66 MG/DL (0.40-0.90); GLUCOSE 218 MG/DL (70-104); MAGNESIUM 1.7 MG/DL (1.5-2.4); PHOSPHORUS 3.4 MG/DL (2.3-4.5); POTASSIUM 4.2 MMOL/L (3.5-5.1); PREALBUMIN 31.8 MG/DL (19-36); SODIUM 140 MMOL/L (135-145); TOTAL PROTEIN 5.4 G/DL (6.4-8.2); eGFR 88 ML/MIN
[2017-10-04] MEDS: ipratropium/albuterol 3ml nebule NEB SCH ×4 (03:39→20:06)
[2017-10-04 03:41] LABS: ABG BASE EXCESS 10.4 mmol/L (-2.0-3.0); ABG HCO3 34.5 mmol/L (22.0-26.0); ABG OXYGEN SATURATION 94.8 % (95-98); ABG PH (T) 7.505 (7.350-7.450); ABG PO2 (T) 77.1 mmHg (83-108); ALLEN'S TEST Positive; FCOHb 0.6 % (0.5-1.5); FMetHb 0.3 % (0.3-1.12); FO2Hb 93.9 % (94-100); MINUTE VOLUME 11 L/min; PATIENT TEMPERATURE 37.7; PEEP 5 cm H2O; RESPIRATORY RATE 18 b/min; RESPIRATORY RATE (OBSERVED) 24 b/min; TIDAL VOLUME 350 mL; TOTAL HEMOGLOBIN 13.9 G/dl (12.0-16.0)
[2017-10-04] MEDS: dexmedetomidin/NS 400mcg/100ml 100 ML IV SCH ×3 (05:15→22:23)
[2017-10-04] MEDS: sotalol 80mg tablet PO SCH ×2 (08:00→20:00)
[2017-10-04] MEDS: lactobacillus rhamnosus 10,000 MMU CELLS/CAPSULE PO SCH ×2 (08:00→20:06)
[2017-10-04] MEDS: pantoprazole 40 MG vial IV SCH (09:40)
[2017-10-04] MEDS: furosemide 40mg/4ml inj IV SCH ×2 (09:40→16:04)
[2017-10-04] MEDS: methylPREDNISolone sod succ/PF 40mg inj. IV SCH ×2 (09:40→20:06)
[2017-10-04] MEDS: docusate sodium 100mg/10ml UD cup PO SCH ×2 (09:40→20:07)
[2017-10-04] MEDS: spironolactone 50 MG tablet PO SCH ×2 (09:40→20:00)
[2017-10-04] MEDS: pravastatin 40mg tablet PO SCH (09:41)
[2017-10-04] MEDS: busPIRone 5mg tablet PO SCH ×2 (09:41→20:06)
[2017-10-04] MEDS: amiodarone/D5 450MG/250ML BAG 250 ML IV SCH ×2 (09:42→23:11)
[2017-10-04] MEDS: nicotine 14mg patch - 24hr TD SCH (09:42)
[2017-10-04] MEDS: NORMAL SALINE IV SCH ×3 (09:42→23:59)
[2017-10-04] MEDS: CEFTAZIDIME IV SCH ×3 (09:42→23:59)
[2017-10-04] MEDS: aspirin 81mg tab.chew PO SCH (10:04)
[2017-10-04] MEDS: digoxin 250mcg (0.25mg) tablet PO SCH (11:53)
[2017-10-04] MEDS: lactulose 20gm/30ml cup PO SCH ×2 (14:22→20:07)
[2017-10-04] MEDS: acetaminophen 325mg tablet PO PRN (14:25)
[2017-10-04] MEDS: midazolam 100mg in NS 100ml 100 ML IV PRN (17:10)
[2017-10-04] MEDS: apixaban 5mg tablet PO SCH (20:07)
[2017-10-04] MEDS: insulin glargine (Lantus) pen - multi-dose SQ SCH (20:32)
[2017-10-05] VITALS (22 sets, daily range): BP systolic 44–166; BP diastolic 38–101
[2017-10-05] MEDS: acetaminophen 325mg/10.15ml oral unit dose solution PO PRN ×3 (00:47→17:57)
[2017-10-05] MEDS: insulin regular, human vial - multi-dose SQ SCH ×3 (01:57→13:41)
[2017-10-05] MEDS: lactulose 20gm/30ml cup PO SCH ×3 (01:58→13:29)
[2017-10-05] MEDS: dexmedetomidin/NS 400mcg/100ml 100 ML IV SCH ×4 (02:15→17:14)
[2017-10-05] MEDS: mineral oil/petrolatum ophthal oint EACHEYE SCH ×3 (02:16→14:00)
[2017-10-05 02:49] LABS: BASOPHILS % (AUTO) 0.1 % (0-1); EOSINOPHILS # (AUTO) 0.2 X10'3 (0-0.9); EOSINOPHILS % (AUTO) 1.6 % (0-6); HEMATOCRIT 38.1 % (35.0-45.0); HEMOGLOBIN 12.5 g/dl (12.0-16.0); LYMPHOCYTES # (AUTO) 0.5 X10'3 (1.1-4.8); LYMPHOCYTES % (AUTO) 3.5 % (21-51); MEAN CORPUSCULAR HEMOGLOBIN 29.1 PG (27.0-31.0); MEAN CORPUSCULAR HGB CONC 32.7 % (33.0-36.5); MEAN CORPUSCULAR VOLUME 88.8 FL (78-98); MEAN PLATELET VOLUME 8.1 FL (7.4-10.4); MONOCYTES % (AUTO) 6.3 % (2-12); NEUTROPHILS # (AUTO) 13.8 X10'3 (1.8-7.7); NEUTROPHILS % (AUTO) 88.5 % (42-75); PLATELET COUNT 103 X10'3 (140-440); RED BLOOD COUNT 4.29 X10'6 (4.20-5.60); RED CELL DISTRIBUTION WIDTH 14.4 % (11.5-14.5); WHITE BLOOD COUNT 15.6 X10'3 (4.5-11.0)
[2017-10-05 03:01] LABS: PARTIAL THROMBOPLASTIN TIME 24 SECONDS (22-32); PROTHROMBIN TIME 10.7 SECONDS (9.0-12.0)
[2017-10-05 03:06] LABS: ALANINE AMINOTRANSFERASE 29 U/L (12-78); ALBUMIN 1.8 G/DL (3.4-5.0); ALBUMIN/GLOBULIN RATIO 0.6 (1.1-1.5); ALKALINE PHOSPHATASE 50 IU/L (46-116); ANION GAP 2 (8-16); ASPARTATE AMINO TRANSFERASE 18 U/L (10-37); BILIRUBIN,TOTAL 0.4 MG/DL (0.1-1.0); BLOOD UREA NITROGEN 44 MG/DL (7-18); BUN/CREATININE RATIO 62.9 (6.6-38.0); CALCIUM 8.2 MG/DL (8.5-10.1); CHLORIDE 97 MMOL/L (99-107); GLUCOSE 170 MG/DL (70-104); MAGNESIUM 1.8 MG/DL (1.5-2.4); SODIUM 141 MMOL/L (135-145); eGFR 82 ML/MIN
[2017-10-05 03:08] LABS: POTASSIUM 4.4 MMOL/L (3.5-5.1)
[2017-10-05 03:11] LABS: TOTAL CARBON DIOXIDE 41.6 MMOL/L (24-32)
[2017-10-05] MEDS ORDERED: ibuprofen 100 MG/5 ML oral susp PO PRN (03:40)
[2017-10-05] MEDS: ipratropium/albuterol 3ml nebule NEB SCH ×2 (04:03→10:23)
[2017-10-05 04:35] LABS: ABG BASE EXCESS 6.4 mmol/L (-2.0-3.0); ABG HCO3 30.3 mmol/L (22.0-26.0); ABG OXYGEN SATURATION 94.9 % (95-98); ABG PCO2 (T) 44.5 mmHg (32.0-45.0); ABG PH (T) 7.457 (7.350-7.450); ALLEN'S TEST Positive; FCOHb 0.8 % (0.5-1.5); FMetHb 0.3 % (0.3-1.12); FO2Hb 93.9 % (94-100); MINUTE VOLUME 10 L/min; PEEP 5 cm H2O; RESPIRATORY RATE 18 b/min; RESPIRATORY RATE (OBSERVED) 27 b/min; TIDAL VOLUME 350 mL
[2017-10-05] MEDS: sotalol 80mg tablet PO SCH (08:00)
[2017-10-05] MEDS: spironolactone 50 MG tablet PO SCH (08:00)
[2017-10-05] MEDS: furosemide 40mg/4ml inj IV SCH ×3 (08:00→16:52)
[2017-10-05] MEDS: digoxin 250mcg (0.25mg) tablet PO SCH (08:15)
[2017-10-05] MEDS: pravastatin 40mg tablet PO SCH (08:16)
[2017-10-05] MEDS: busPIRone 5mg tablet PO SCH (08:16)
[2017-10-05] MEDS: lactobacillus rhamnosus 10,000 MMU CELLS/CAPSULE PO SCH (08:17)
[2017-10-05] MEDS: apixaban 5mg tablet PO SCH (08:17)
[2017-10-05] MEDS: aspirin 81mg tab.chew PO SCH (08:18)
[2017-10-05] MEDS: pantoprazole 40 MG vial IV SCH (08:19)
[2017-10-05] MEDS: methylPREDNISolone sod succ/PF 40mg inj. IV SCH (08:19)
[2017-10-05] MEDS: nicotine 14mg patch - 24hr TD SCH (08:19)
[2017-10-05] MEDS: CEFTAZIDIME IV SCH ×2 (09:02→16:42)
[2017-10-05] MEDS: NORMAL SALINE IV SCH ×2 (09:02→16:42)
[2017-10-05] MEDS ORDERED: acetaZOLAMIDE IV 500mg inj IV SCH (10:00)
[2017-10-05] MEDS: docusate sodium 100mg/10ml UD cup PO SCH (13:29)
[2017-10-05 13:51] LABS: ABG BASE EXCESS 5.9 mmol/L (-2.0-3.0); ABG HCO3 32.4 mmol/L (22.0-26.0); ABG OXYGEN SATURATION 91.9 % (95-98); ABG PCO2 (T) 54.3 mmHg (32.0-45.0); ABG PH (T) 7.394 (7.350-7.450); ABG PO2 (T) 69.2 mmHg (83-108); ALLEN'S TEST Positive; FCOHb 1.1 % (0.5-1.5); FLOW 4 L/min; FO2Hb 90.9 % (94-100); TOTAL HEMOGLOBIN 15.3 G/dl (12.0-16.0)
[2017-10-05] MEDS: amiodarone/D5 450MG/250ML BAG 250 ML IV SCH (16:56)
[2017-10-05] MEDS ORDERED: acetaminophen 1,000mg/100ml IV 100 ML IV SCH (18:15)
[2017-10-05] MEDS ORDERED: vancomycin inj 1,250 MG in normal saline 250ml IV soln 250 ML IV SCH (19:00)
[2017-10-05] MEDS ORDERED: vancomycin/NS 1 GM ADD-VANTAGE 250 ML IV SCH (19:00)
[2017-10-05 19:10] LABS: ABG HCO3 27.2 mmol/L (22.0-26.0); ABG OXYGEN SATURATION 91.3 % (95-98); ABG PCO2 (T) 84.9 mmHg (32.0-45.0); ABG PH (T) 7.144 (7.350-7.450); ABG PO2 (T) 96.9 mmHg (83-108); FCOHb 1.2 % (0.5-1.5); FMetHb 0.3 % (0.3-1.12); FO2Hb 89.9 % (94-100); MINUTE VOLUME 7 L/min; PATIENT TEMPERATURE 40.6; PEEP 8 cm H2O; RESPIRATORY RATE 18 b/min; RESPIRATORY RATE (OBSERVED) 18 b/min; TIDAL VOLUME 350 mL; TOTAL HEMOGLOBIN 15.8 G/dl (12.0-16.0)
[2017-10-05 19:16] LABS: OXYGEN SATURATION (MIXED VEN) 54.5 % (60-80); PO2 MIXED VENOUS (TEMP COR) 51.3 mmHg (35-46)
[2017-10-05] MEDS ORDERED: vasopressin inj. 60 UNIT in normal saline 100ml IV soln 97 ML IV SCH (19:20)
[2017-10-05] MEDS ORDERED: DOBUTamine-DoBUTrex 500mg/D5W 250 ML IV PRN (19:20)
[2017-10-05] MEDS ORDERED: sodium bicarbonate (8.4%) 1 mEq/ml syringe ONE (19:51)
[2017-10-05] MEDS ORDERED: linezolid 600mg/300ml PREMIX 300 ML IV SCH (20:00)
[2017-10-06] MEDS ORDERED: meropenem inj 500 MG in normal saline 100ml IV soln 100 ML IV SCH ×2
[2017-10-06] MEDS ORDERED: dexmedetomidin/NS 400mcg/100ml 100 ML IV SCH (16:05)
== END 2017-10-06 01:12 | disposition expired | DRG 870 ==
LOC: ER 14:55 → ED HOLD 17:27 → PCU 3S 09-22 00:40 → ICU 2S 09-23 10:12 → PCU 3S 09-27 14:18 → ICU 2S 09-28 16:48
PROVIDERS: ADMIT Internal Medicine; ATTEND Internal Medicine Critical Care Medicine
PROC: 5A09457 Assistance with Respiratory Ventilation, 24-96 Consecutive Hours, Continuous Positive Airway Pressure (ICD-10-PCS; 2017-09-23)
PROC: 5A1955Z Respiratory Ventilation, Greater than 96 Consecutive Hours (ICD-10-PCS; principal; 2017-09-28)
PROC: 0BH18EZ Insertion of Endotracheal Airway into Trachea, Via Natural or Artificial Opening Endoscopic (ICD-10-PCS; 2017-09-28)
PROC: 5A12012 Performance of Cardiac Output, Single, Manual (ICD-10-PCS; 2017-09-28)
PROC: 4A023N7 Measurement of Cardiac Sampling and Pressure, Left Heart, Percutaneous Approach (ICD-10-PCS; 2017-09-29)
PROC: 02HV33Z Insertion of Infusion Device into Superior Vena Cava, Percutaneous Approach (ICD-10-PCS; 2017-09-29)
PROC: 04HY32Z Insertion of Monitoring Device into Lower Artery, Percutaneous Approach (ICD-10-PCS; 2017-09-29)
PROC: B2111ZZ Fluoroscopy of Multiple Coronary Arteries using Low Osmolar Contrast (ICD-10-PCS; 2017-09-29)
PROC: B2151ZZ Fluoroscopy of Left Heart using Low Osmolar Contrast (ICD-10-PCS; 2017-09-29)
PROC: B2131ZZ Fluoroscopy of Multiple Coronary Artery Bypass Grafts using Low Osmolar Contrast (ICD-10-PCS; 2017-09-29)
PROC: 04HL33Z Insertion of Infusion Device into Left Femoral Artery, Percutaneous Approach (ICD-10-PCS; 2017-09-29)
PROC: 0W993ZZ Drainage of Right Pleural Cavity, Percutaneous Approach (ICD-10-PCS; 2017-10-04)
PROC: 5A1935Z Respiratory Ventilation, Less than 24 Consecutive Hours (ICD-10-PCS; 2017-10-05)
PROC: 0BH17EZ Insertion of Endotracheal Airway into Trachea, Via Natural or Artificial Opening (ICD-10-PCS; 2017-10-05)
PROC: 04HY32Z Insertion of Monitoring Device into Lower Artery, Percutaneous Approach (ICD-10-PCS; 2017-10-05)
DX: A41.9 Sepsis, unspecified organism (principal); J69.0 Pneumonitis due to inhalation of food and vomit; I21.4 Non-ST elevation (NSTEMI) myocardial infarction; R57.9 Shock, unspecified; J96.01 Acute respiratory failure with hypoxia; J96.02 Acute respiratory failure with hypercapnia; N39.0 Urinary tract infection, site not specified; B96.20 Unspecified Escherichia coli [E. coli] as the cause of diseases classified elsewhere; E11.9 Type 2 diabetes mellitus without complications; E87.2 Acidosis; J44.1 Chronic obstructive pulmonary disease with (acute) exacerbation; Z68.41 Body mass index [BMI] 40.0-44.9, adult; E66.01 Morbid (severe) obesity due to excess calories; I46.9 Cardiac arrest, cause unspecified; E78.5 Hyperlipidemia, unspecified; I10 Essential (primary) hypertension; I25.10 Atherosclerotic heart disease of native coronary artery without angina pectoris; I48.0 Paroxysmal atrial fibrillation; F17.210 Nicotine dependence, cigarettes, uncomplicated; Z95.1 Presence of aortocoronary bypass graft; Z79.899 Other long term (current) drug therapy; Z79.01 Long term (current) use of anticoagulants; Z88.8 Allergy status to other drugs, medicaments and biological substances
CPT/HCPCS: 32555; 36415; 36600; 71045; 71046; 74018; 80053; 80061; 81001; 82803; 82810; 82948; 83036; 83605; 83735; 83880; 84100; 84134; 84484; 85018; 85025; 85347; 85379; 85610; 85730; 87040; 87070; 87077; 87088; 87186; 87502; 87503; 93005; 93306; 93459; 94002; 94003; 94640; 94660; 94760; 97162; 97530; 99152; 99291; A6212; A6213; A6257; A6258; A6402; A6449; A7015; C1751; C1758; C1769; C1894; C9113; J0131; J0171; J0282; J0330; J0360; J0456; J0461; J0696; J0713; J1120; J1200; J1250; J1265; J1644; J1650; J1815; J1940; J2020; J2060; J2185; J2250; J2405; J2920; J2930; J3370; J3486; J3490; J7030; J7042; Q9967